=== PATIENT | male | born 1965 | race Caucasian/White ===

== ENCOUNTER 2018-06-19 22:25 | Outpatient (REF) | payer BC, SELFPAY ==
[2018-06-22 10:01] LABS: PSA, Screening 1.9 ng/ml (0-3.5)
== END 2018-06-19 22:45 ==
LOC: NCHCN 22:25
PROVIDERS: PCP Internal Medicine; Visit Provider Internal Medicine
DX: Z00.00 Encounter for general adult medical examination without abnormal findings (principal); Z12.5 Encounter for screening for malignant neoplasm of prostate; Z80.42 Family history of malignant neoplasm of prostate
CPT/HCPCS: 84153

== ENCOUNTER 2020-07-14 09:44 | Outpatient (REF) | payer OTHER, SELFPAY ==
[2020-07-14 21:53] LABS: ALT 35 U/L (16-63); AST 19 U/L (15-37); Albumin 4.1 g/dL (3.4-5.0); Alkaline Phosphatase 90 U/L (46-116); BUN 21 mg/dL (7-18); Bilirubin, Total 0.5 mg/dL (0.2-1.0); CREATININE 0.92 mg/dL (0.70-1.30); Calcium 9.5 mg/dL (8.5-10.1); Calculated LDL 150 mg/dL (<100); Chloride 105 mmol/L (98-107); Cholesterol 233 mg/dL (<200); Glucose 89 mg/dL (74-106); HDL Cholesterol 68 mg/dL (40-60); Potassium 4.4 mmol/L (3.5-5.1); Sodium 138 mmol/L (136-145); Total Protein 7.1 g/dL (6.4-8.2); Triglyceride 76 mg/dL (<150)
[2020-07-17 20:28] LABS: PSA, Screening 2.7 ng/mL (0-3.5)
== END 2020-07-14 10:04 ==
LOC: NCHCN 09:44
PROVIDERS: PCP Internal Medicine; Visit Provider Internal Medicine
DX: Z00.00 Encounter for general adult medical examination without abnormal findings (principal); Z80.42 Family history of malignant neoplasm of prostate; Z13.220 Encounter for screening for lipoid disorders
CPT/HCPCS: 80053; 80061; 84153

== ENCOUNTER 2021-07-13 08:45 | Outpatient (REF) | payer OTHER, SELFPAY ==
[2021-07-13 16:39] LABS: BUN 15 mg/dL (7-18); CREATININE 0.9 mg/dL (0.70-1.30); Calcium 9.3 mg/dL (8.5-10.1); Calculated LDL 174 mg/dL (<100); Chloride 105 mmol/L (98-107); Cholesterol 251 mg/dL (<200); Glucose 93 mg/dL (74-106); HDL Cholesterol 65 mg/dL (40-60); Potassium 4.4 mmol/L (3.5-5.1); Sodium 143 mmol/L (136-145); Triglyceride 62 mg/dL (<150)
[2021-07-16 09:53] LABS: PSA, Screening 2.6 ng/mL (0.0-3.5)
== END 2021-07-13 08:46 | disposition home or self-care (01) ==
LOC: NCHCN 08:45
PROVIDERS: PCP Internal Medicine; Visit Provider Internal Medicine
DX: Z00.00 Encounter for general adult medical examination without abnormal findings (principal); Z13.220 Encounter for screening for lipoid disorders; Z12.5 Encounter for screening for malignant neoplasm of prostate
CPT/HCPCS: 80048; 80061; 84153

== ENCOUNTER 2022-01-09 16:48 | Outpatient (REF) | payer OTHER, SELFPAY ==
[2022-01-09 15:31] LABS: Calculated LDL 123 mg/dL (<100); Cholesterol 186 mg/dL (<200); HDL Cholesterol 52 mg/dL (40-60); Triglyceride 58 mg/dL (<150)
== END 2022-01-09 16:49 | disposition home or self-care (01) ==
LOC: LBN 16:48
PROVIDERS: PCP Internal Medicine; Visit Provider Internal Medicine
DX: Z13.220 Encounter for screening for lipoid disorders (principal)
CPT/HCPCS: 80061

== ENCOUNTER 2023-01-17 11:24 | Outpatient (REF) | payer OTHER, SELFPAY ==
[2023-01-17 14:36] LABS: ALT 29 U/L (16-63); AST 22 U/L (15-37); Albumin 3.9 g/dL (3.4-5.0); Alkaline Phosphatase 81 U/L (46-116); Anion Gap 9.1 mmol/L (3-11); BUN 16 mg/dL (7-18); Bilirubin, Total 0.4 mg/dL (0.2-1.0); CO2 26.9 mmol/L (21.0-32.0); CREATININE 0.9 mg/dL (0.70-1.30); Calcium 9.4 mg/dL (8.5-10.1); Calculated LDL 129 mg/dL (<100); Chloride 105 mmol/L (98-107); Cholesterol 209 mg/dL (<200); Estimated GFR 100.24 (mL/min/1.73m2); Glucose 83 mg/dL (74-106); HDL Cholesterol 71 mg/dL (40-60); Potassium 4.2 mmol/L (3.5-5.1); Sodium 141 mmol/L (136-145); Total Protein 7.3 g/dL (6.4-8.2); Triglyceride 47 mg/dL (<150)
[2023-01-17 23:14] LABS: PSA, Screening 3.9 ng/mL (<=3.5)
== END 2023-01-17 11:25 | disposition home or self-care (01) ==
LOC: NCHCN 11:24
PROVIDERS: PCP Internal Medicine; Visit Provider Internal Medicine
DX: Z00.00 Encounter for general adult medical examination without abnormal findings (principal); E78.5 Hyperlipidemia, unspecified; I10 Essential (primary) hypertension; Z12.5 Encounter for screening for malignant neoplasm of prostate
CPT/HCPCS: 80053; 80061; 84153

== ENCOUNTER 2023-04-16 08:53 | Outpatient (REF) | payer OTHER, SELFPAY ==
[2023-04-16 16:00] LABS: Vitamin D 25 Total 25.9 ng/mL (30-100)
[2023-04-16 23:12] LABS: PSA, Screening 3.7 ng/mL (<=3.5)
== END 2023-04-16 08:54 | disposition home or self-care (01) ==
LOC: NCHCN 08:53
PROVIDERS: PCP Internal Medicine; Visit Provider Internal Medicine
DX: Z12.5 Encounter for screening for malignant neoplasm of prostate (principal); F32.A Depression, unspecified
CPT/HCPCS: 82306; 84153

== ENCOUNTER 2023-09-15 06:20 | Day surgery (SDC) | payer OTHER, SELFPAY ==
--- NOTE | 2023-09-14 18:19 | W.PM.DSUDISC ---
Date of service: 09/15/23 Time of Service: 08:09 Discharge Plan Disposition Patient Disposition: Home Condition: Good Discharge Details Reason For Visit: screening colonoscopy Attending Provider: Ghulam Nicolas Primary Care Provider: Berta Garcia Home Meds and New Rx's Prescriptions: Continued omeprazole 20 mg capsule,delayed release(DR/EC) 20 mg PO .3 times a week albuterol sulfate [Proventil HFA] 90 mcg/actuation HFA aerosol inhaler 2 puff inhalation Q6H PRN fluticasone propion-salmeterol [Advair Diskus] 500-50 mcg/dose blister with device 1 inh inhalation BID Discontinued bisacodyl [Dulcolax (bisacodyl)] 5 mg tablet,delayed release (DR/EC) 5 mg PO ONCE Qty: 4 0RF Rx Instructions: Take per colonoscopy instructions provided by ordering providers office polyethylene glycol 3350 17 gram/dose powder 17 g PO ONCE Qty: 238 0RF Rx Instructions: Take per colonoscopy instructions provided by ordering providers office Discharge Instructions Instructions: Diverticulosis (DC), Colorectal Polyps (GEN), Diverticulosis Diet (GEN) Additional Instructions: Gino, we were able to complete your colonoscopy today without any difficulty. Your prep was excellent. I did see 2 small areas that may be polyps. I removed these both completely. We will take a week or 2 for me to get the results of the pathology report, but once I have that I will be in touch. Incidentally, you also have just a small amount of diverticulosis. I have attached a little bit of information here regarding diverticular disease and is typical management approaches. 1. If tolerated, consume a soft, low fiber diet for 1-2 days. 2[address] Do not drive, drink alcohol, operate machinery, make critical decisions, or do activities that require coordination or balance for 24 hours. 3. Because air was put into your colon during the procedure, expelling air from your rectum (passing gas or farting) is normal. 4. You may not have a bowel movement for 1-3 days because of the colonoscopy prep. This is normal. 5. Go directly to the emergency room if you notice any of the following: Develop chills (warm to touch), or if you have a thermometer and your temperature is above 101 Difficulty breathing or difficultly swallowing Persistent vomiting Severe abdominal pain, other than gas cramps Severe chest pain Black, tarry stools Any bleeding ? exceeding one tablespoon 6. Call your physician if the site where your intravenous was started becomes red, swollen, painful, and warm to touch. 7. Your physician has reviewed your pre-procedure medications. Please continue to take those medications as previously ordered. You will be given specific information/education regarding any changes to your medications before leaving. Activity:: Activity as Tolerated Diet:: As Tolerated Discharge Orders Discharge Orders: Discharge Order (Routine); Ordered 09/14/23 Ordered By: Ghulam Nicolas DS: Diagnosis Discharge Diagnosis (1) Screen for colon cancer: Status: Acute Asessment and Plan: Follow-up on polypectomy results
--- NOTE | 2023-09-14 18:21 | W.COLOREPORT ---
Date of service: 09/15/23 Time of Service: 08:12 Colonoscopy Report Date of procedure: 09/15/23 Pre-op diagnosis general: screening colonoscopy Post-op diagnosis procedure note: other (Diverticulosis, colon polyps) Procedure: Colonoscopy Surgeon: Ghulam Nicolas Anesthesia Type: General:No Airway Estimated blood loss (mL): 5 Pathology: other (0.25 cm polyp at 25 cm x 2) Complications: None Disposition: same day Indications: Gino is a 58 year old man with a history of adenomatous plyps who needs his next screening colonoscopy Prep: Miralax/Dulcolax Procedure Start Time: 07:34 Procedure End Time: 07:57 Retraction Time: 16 Findings: 0.25 cm polyp at 25 cm x 2 Procedure Description: After the induction of monitored anesthetic care, and with the patient in left lateral decubitus position, I began by performing an external anorectal exam.? Perineum and skin were normal, as was the anal verge.? There are some fibrosed perianal skin tags.? Next, I performed a digital rectal exam.? I did not appreciate any abnormal findings.? Next, I advanced a colonoscope into the rectal vault.? I performed retroflexion.? This was normal.? Using insufflation, I then advanced the colonoscope beyond the rectal folds and into the sigmoid colon before advancing towards the cecum.? There were just a few scattered sigmoid diverticula.? The scope was noted to be in the cecum by identification of the ileocecal valve and appendiceal orifice.? I then began withdrawing the colonoscope using repeated irrigation as necessary for full evaluation of the colonic mucosa. Around 20 cm from the anus were 2 polyps. One may not be a true polyp. Narrowband imaging was used to assist with analysis. Regardless, both were removed with cold forceps. Both of these polyps were flat. There was minimal bleeding from the polypectomy sites. Once the scope was withdrawn to the level of the rectum, great care was taken to examine portions of the rectal folds.? Finally, the scope was withdrawn and the patient was brought to the same-day surgery recovery unit as the anesthetic wore off. ?The findings and instructions were shared with the patient prior to discharge. [place] Bowel Prep [place] Bowel Prep Right Colon: 3 Left Colon: 3 Transverse Colon: 3 Total Score: 9
[2023-09-15 06:30] VITALS: BP 144/94; PULSE 90; RESP 16; TEMP 37.2; O2SAT 99
[2023-09-15] MEDS: Lactated Ringers 1,000 ML 80 ML IV (06:47)
--- NOTE | 2023-09-15 07:13 | W.ANESPRE ---
General Info Date of Service Date Performed: 09/15/23 Height: 5 ft 10 in Weight: 87.3 kg Body Mass Index (BMI): 27.6 Surgical Procedure: Operation Date: 09/15/23 07:35 Proposed Procedure Side Surgeon p Que Nicolas MD Meds Allergies and Home Medications Allergies Allergy/AdvReac Type Severity Reaction Status Date / Time No Known Allergies Allergy Verified 09/15/23 06:28 Home Medication Medication Instructions Recorded albuterol sulfate 90 mcg/actuation 2 puff inhalation Q6H PRN 08/07/23 aerosol inhaler (Proventil HFA) fluticasone 500 mcg-salmeterol 50 1 inh inhalation BID 08/07/23 mcg/dose blistr powdr for inhalation (Advair Diskus) omeprazole 20 mg capsule,delayed 20 mg PO .3 times a week 08/07/23 release Current Visit Medications: Current Medications Generic Name Dose Route Start Last Admin Trade Name Freq PRN Reason Stop Dose Admin Hyoscyamine Sulfate 0.125 mg 09/14/23 18:22 Hyoscyamine 0.125 Mg Sl/Oral/Chew SL 10/14/23 18:21 DIRECTED PRN Ringer's Solution 1,000 mls @ 80 mls/hr 09/15/23 06:00 09/15/23 06:47 IV 09/15/23 23:59 80 mls/hr INFUSION PRIYANK Administration IV Miscellaneous Supplies 1 each 09/15/23 06:00 Iv Access IV 09/15/23 23:59 DIRECTED PRIYANK Ondansetron HCl 4 mg 09/14/23 18:22 Ondansetron 4 Mg/2 Ml Vial IVP 10/14/23 18:21 Q4H PRN PRN Nausea / Vomiting Sodium Chloride 0 ml 09/15/23 06:00 Normal Saline Flush 10 Ml Syr IV 09/15/23 23:59 PRN PRN Sodium Chloride 0 ml 09/15/23 06:00 Normal Saline 10 Ml Vial IJ 09/15/23 23:59 DIRECTED PRN Sterile Water 0 ml 09/15/23 06:00 Water,Injection,Sterile 10 Ml Vial IJ 09/15/23 23:59 DIRECTED PRN PFSH Active Problems Active Problems: Problem Status Onset Code Screen for colon cancer Z12.11 Depression with anxiety F41.8 Medical History Medical History Asthma Adenomatous colon polyp 2017 Surgical History Surgical History Hx of colonoscopy Tobacco Smoking/Tobacco Use Status: Former Tobacco Use Alcohol Alcohol Intake: current Alcohol intake frequency: a few times a week Substance Use Substance use: Never Substance use type: does not use Vital Signs and Lab Results Vital Signs Most Recent Vital Signs in EMR: Most Recent Vital Signs Temp Pulse Resp BP Pulse Ox 37.2 C 90 16 144/94 H 99 09/15/23 06:30 09/15/23 06:30 09/15/23 06:30 09/15/23 06:30 09/15/23 06:30 Lab Results Blood Type / Crossmatch: No Data to Display Complete Blood Count: No Data to Display Complete Metabolic Panel: No Data to Display Liver Function Panel: No Data to Display Coagulation Panel: No Data to Display Cardiac Panel: No Data to Display Arterial Blood Gas: No Data to Display Venous Blood Gas: No Data to Display Pancreas Panel: No Data to Display Thyroid Panel: No Data to Display Infectious Disease: No Data to Display Blood Cultures: No Data to Display Toxicology Panel: No Data to Display Anesthesia Assessment and Plan Anesthesia History Personal History: No History of Anesthesia Complications Family History: No Family History of Anesthesia Complications Exercise Tolerance Exercise Tolerance: Metabolic Equivalents>4 Pertinent Negatives Pertinent Negatives: No Symptoms of GERD and No Major Cardiovascular Symptoms or Complaints Cardiac & Pulmonary Exam Cardiac Exam: Normal S1/S2 Heart Sounds Pulmonary Exam: Clear Bilateral Breath Sounds Implantable Cardiac Device Does patient have a Pacemaker or an ICD?: No Airway Exam Known Difficult Airway: No Mallampati Class: 2 Mouth Opening: Normal (> 3cm) Thyromental Distance: Greater than 3 cm Neck Range of Motion: Full ROM Neck Circumference: Normal Teeth Condition: Normal Dentition ASA Classification ASA Score: ASA 2 Emergency Case?: No NPO Status NPO Status: NPO Clears >2 hours, Solids >8 hours Anesthesia Plan Resuscitation Status: Full Code Anesthesia Technique: General Anesthesia Airway Planned: Natural Airway Monitors Used: Standard Monitors
[2023-09-15 07:15] VITALS: BMI 27.6
--- NOTE | 2023-09-15 07:52 | BOWEL_PTH ---
PATIENT: Gino George LOC: [facility] U#:[id number] AGE/SX: 58/M ROOM: RE09/15/[address]: Ghulam Nicolas MD : 1965 BED: DIS: 09/15/2023 SPEC #: [id number] RECD: 09/15/23 11:58 STATUS: PAWEL RE #: [id number] CASANDRA: 09/15/23 07:[address]: Ghulam Nicolas DEPT: Surgical Specimen RECD BY: Laney Mccollum ENTERED: 09/15/23 11:59 SP TYPE: Bowel OTHR DR: Berta Garcia Tissues: 1 - BIOPSY BOWEL Procedures: GROSS AND MICRO LEVEL 4 Comments: [id number]
[2023-09-15 08:02] VITALS: BP 117/76; PULSE 67; RESP 18; TEMP 36.6; O2SAT 96
--- NOTE | 2023-09-15 08:21 | W.ANESPOSTOP ---
Postoperative Evaluation Date, Time and Location Date Performed: 09/15/23 Time Performed: 08:04 Patient Location: Day Surgery Unit Vital Signs Most Recent Imported Vital Signs: Most Recent Vital Signs Temp Pulse Resp BP Pulse Ox 36.6 C 67 18 117/76 96 09/15/23 08:02 09/15/23 08:02 09/15/23 08:02 09/15/23 08:02 09/15/23 08:02 Pain Score Most Recent Pain Score: Most Recent Pain Score Pain Level 0 09/15/23 08:02 Assessment Mental Status: Awake (Alert & Oriented to Patient Baseline) Airway and Respiratory Function: Patent airway with normal (patient baseline) respiratory exam Cardiovascular Function: Hemodynamically Stable Hydration Status: Adequately Hydrated Nausea & Vomiting: No Nausea or Vomiting Pain: Pt. Denies Any Pain Peripheral Nerve Block: Patient did not receive a nerve block
[2023-09-15 08:25] VITALS: BP 106/73; PULSE 75; RESP 16; TEMP 36.6; O2SAT 98
== END 2023-09-15 08:47 | disposition home or self-care (01) ==
LOC: SUR 06:20
PROVIDERS: PCP Internal Medicine; Visit Provider Surgery
PROC: 0DJD8ZZ Inspection of Lower Intestinal Tract, Via Natural or Artificial Opening Endoscopic (ICD-10-PCS; CPT 45378; principal; 2023-09-15 07:30)
DX: Z12.11 Encounter for screening for malignant neoplasm of colon (principal); K63.5 Polyp of colon; K57.30 Diverticulosis of large intestine without perforation or abscess without bleeding; Z86.010 Personal history of colon polyps
CPT/HCPCS: 45380; 88305; J2704

== ENCOUNTER 2024-01-19 12:20 | Outpatient (REF) | payer OTHER, SELFPAY ==
[2024-01-19 16:36] LABS: Calculated LDL 117 mg/dL (<100); Cholesterol 199 mg/dL (<200); HDL Cholesterol 77 mg/dL (40-60); Triglyceride 28 mg/dL (<150)
== END 2024-01-19 12:21 | disposition home or self-care (01) ==
LOC: NCHCN 12:20
PROVIDERS: PCP Internal Medicine; Visit Provider Internal Medicine
DX: E78.5 Hyperlipidemia, unspecified (principal); Z12.5 Encounter for screening for malignant neoplasm of prostate
CPT/HCPCS: 80061; 84153

== ENCOUNTER 2024-05-20 14:38 | Outpatient (REF) | payer OTHER, SELFPAY ==
--- OUTSIDE RECORDS SUMMARY | 2024-05-20 14:41 | XMS_ITS | Clinical Summary ---
[place] [address] Care Team Providers Care Fisher Swordfish Name Role Phone Berta Garcia MD Primary Care Provider Encounters Date Type Department Care Team Description 05/18/2024 Unscheduled [place] [id number] Claudia Green RN Elevated PSA 05/18/2024 [place] [phone] Claudia Green RN 05/18/2024 [place] [address] Juany Paniagua APRN Elevated PSA from Last 3 Months Social History Tobacco Use Types Packs/Day Years Used Date Smoking Tobacco: Never Assessed Sex and Gender Information Value Date Recorded Sex Assigned at Not on file Gender Identity Not on file Sexual Orientation Not on file Plan of Treatment Upcoming Encounters Date Type Department Care Team (Late st Contact Info) Description 05/24/2024 8:20 AM EDT [place] [address] Juany Paniagua APRN [facility] [place] [address] Health Maintenance Due Date Last Done Comments CT Colonography 1966 Colonoscopy 1966 Colorectal Cancer Screening 1966 FIT DNA 1966 FIT 1966 Sigmoidoscopy (10 year) with FIT yearly 1966 Sigmoidoscopy 1966 HIV screen 1984 Hepatitis C Screening 1984 Lipid Screening 1984 Hepatitis B vaccine (0-59 yrs) (1) 1985 Tdap adult 1985 Tetanus vaccine 1985 Zoster vaccine (1 of 2) 2016 Advance Directive 2021 Covid-19 Vaccine ( - season) 2024 Influenza (Flu) vaccine (1 o f 1 - Influenza standard series) 05/09/2024 Care Teams Fisher Swordfish Relationship Specialty Start Date End Date Berta Garcia MD [address] [place] [address] PCP - General General Internal Medicine 01/28/24
--- OUTSIDE RECORDS SUMMARY | 2024-05-20 14:41 | XMS_ITS | Encounter Summary ---
[place] [address] Care Team Providers Care Staff Certified Nurse Midwife Name Role Phone Berta Garcia MD Primary Care Provider Encounter Details Date Type Department Care Team (Late st Contact Info) Description 05/18/2024 Orders [place] [address] Juany Paniagua [facility] [place] [address] Elevated PSA Social History Tobacco Use Types Packs/Day Years Used Date Smoking Tobacco: Never Assessed Sex and Gender Information Value Date Recorded Sex Assigned at Not on file Gender Identity Not on file Sexual Orientation Not on file documented as of this encounter Plan of Treatment Upcoming Encounters Date Type Department Care Team (Late st Contact Info) Description 05/24/2024 8:20 AM EDT Office [place] [address] Juany Paniagua [facility] [place] [address] Scheduled Orders Name Type Priority Associated Diagnoses Orde r Schedule PSA (Ultrasensitive), total and free Lab STAT Elevated PSA Expected: 05/18/2024, Expires: 08/17/2024 documented as of this encounter Visit Diagnoses Diagnosis Elevated PSA Elevated prostate specific antigen (PSA) documented in this encounter Care Teams Staff Certified Nurse Midwife Relationship Specialty Start Date End Date Berta Garcia MD [address] [place] [id number] PCP - General General Internal Medicine 01/28/24 documented as of this encounter
--- OUTSIDE RECORDS SUMMARY | 2024-05-20 14:41 | XMS_ITS | Encounter Summary ---
Author Organization [facility] [place] [address] Care Team Providers Care Tape Maker Name Role Phone Berta Garcia MD Primary Care Provider [phone] Encounter Details Date Type Department Care Team (Late st Contact Info) Description 05/18/2024 [place] [address] Claudia Green, RN Social History Tobacco Use Types Packs/Day Years Used Date Smoking Tobacco: Never Assessed Sex and Gender Information Value Date Recorded Sex Assigned at Not on file Gender Identity Not on file Sexual Orientation Not on file documented as of this encounter Progress Notes * Claudia Green, RN - 05/18/2024 4:23 PM EDT Error documented in this encounter Plan of Treatment Upcoming Encounters Date Type Department Care Team (Late st Contact Info) Description 05/24/2024 8:20 AM EDT [place] [address] Juany Paniagua APRN [facility] [place] [address] documented as of this encounter Visit Diagnoses Not on filedocumented in this encounter Care Teams Tape Maker Relationship Specialty Start Date End Date Berta Garcia MD [address] [address] PCP - General General Internal Medicine 01/28/24 documented as of this encounter
--- OUTSIDE RECORDS SUMMARY | 2024-05-20 14:41 | XMS_ITS | Encounter Summary ---
Author Organization [facility] [place] [address] Care Team Providers Care Cripple Worker Name Role Phone Berta Garcia MD Primary Care Provider [phone] Encounter Details Date Type Department Care Team (Late st Contact Info) Description 05/18/2024 Unscheduled [place] [address] Claudia Green RN Elevated PSA Social History Tobacco Use Types Packs/Day Years Used Date Smoking Tobacco: Never Assessed Sex and Gender Information Value Date Recorded Sex Assigned at Not on file Gender Identity Not on file Sexual Orientation Not on file documented as of this encounter Progress Notes * Claudia Green, GRZEGORZ - 05/18/2024 4:25 PM EDT Psa sent to [facility] documented in this encounter Plan of Treatment Upcoming Encounters Date Type Department Care Team (Late st Contact Info) Description 05/24/2024 8:20 AM EDT [place] [address] Juany Paniagua APRN [facility] [place] [address] documented as of this encounter Visit Diagnoses Diagnosis Elevated PSA Elevated prostate specific antigen (PSA) documented in this encounter Care Teams Cripple Worker Relationship Specialty Start Date End Date Berta Garcia MD [address] [place] [address] PCP - General General Internal Medicine 01/28/24 documented as of this encounter
--- OUTSIDE RECORDS SUMMARY | 2024-05-20 14:42 | XMS_ITS | Referral Summary ---
Author Organization [facility] Address [address] [place] [address] Care Team Providers Care Duralumin Mechanic Name Role Phone Berta Garcia Primary Care Provider [phone] Encounters Date Type Department Care Team Description 04/29/2024 8:10 EDT Office Visit [facility] Dermatology 3rd Floor [address] [address] Desiree Galvez, ATUL Multiple atypical nevi (Primary Dx); Nevus spilus of right thigh from Last 3 Months Allergies Active Allergy Reactions Criticality Noted Date Comments Cat Dander 08/28/2022 Medications Medication Sig Dispensed Refills Start Date End Date Status FLUTICASONE/SALMETEROL (ADVAIR DISKUS INHL) Inhale as directed. 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 Social History Tobacco Use Types Packs/Day Years Used Date Smoking Tobacco: Former Cigarettes Smokeless Tobacco: Never Tobacco Cessation:Counseling Given: Not Answered Alcohol Use Standard Drinks/Week Comments Not Asked 0 (1 standard drink = 0.6 oz pur e alcohol) Interpersonal Safety Answer Date Record ed Physically Hurt Never 04/09/2020 Verbally Threaten Not on file 04/09/2020 Sex and Gender Information Value Date Recorded Sex Assigned at Not on file Gender Identity Not on file Sexual Orientation Not on file Plan of Treatment Not on file Care Teams Duralumin Mechanic Relationship Specialty Start Date End Date Berta Garcia [address] [place] [address] PCP - General Internal Medicine - Primary Care 12/24/21
--- OUTSIDE RECORDS SUMMARY | 2024-05-20 14:42 | XMS_ITS | Encounter Summary ---
Author Organization [facility] Address [address] [place] [address] Care Team Providers Care Shipfitter Apprentice Name Role Phone Berta Garcia Primary Care Provider [phone] Encounter Details Date Type Department Care Team (Late st Contact Info) Description 04/16/2023 Lab Requisition [facility] Pathology & Laboratory Medicine - [address] [address] Outr Resulting Lab, Provider Social History Tobacco Use Types Packs/Day Years Used Date Smoking Tobacco: Former Cigarettes Smokeless Tobacco: Never Alcohol Use Standard Drinks/Week Comments Not Asked [...] as of this encounter Plan of Treatment Not on file documented as of this encounter Procedures Procedure Name Priority Date/Time Associated Diagnosis Comments PSA TOTAL, DIAGNOSTIC Routine 04/16/2023 7:45 EDT documented in this encounter Results * (ABNORMAL) PSA TOTAL, DIAGNOSTIC (04/16/2023 7:45 EDT) PSA 3.7(H) <=3.5 ng/mL 04/16/2023 23:06 EDT [facility] Blood VENOUS BLOOD / Unknown 04/16/2023 7:45 EDT 04/16/2023 21:36 EDT Narrative [facility] - 04/16/2023 23:06 EDT NOTE: Serum PSA concentration should not be interpreted as absolute evidence for the presence or absence of malignant disease. Assayed on Siemens ADVIA Centaur XPT using chemiluminescent technology.??Values obtained by using different assay methods cannot be used interchangeably. Provider Outr Resulting Lab CHEMISTRY & BLOOD GAS ORDERABLES [facility] [address] [place] [address] documented in this encounter Visit Diagnoses Not on filedocumented in this encounter Care Teams Shipfitter Apprentice Relationship Specialty Start Date End Date Berta Garcia [address] [place] [address] PCP - General Internal Medicine - Primary Care 12/24/21 documented as of this encounter
--- OUTSIDE RECORDS SUMMARY | 2024-05-20 14:42 | XMS_ITS | Encounter Summary ---
Author Organization [facility] Address [address] [place] [address] Care Team Providers Care Ginseng Farmer Name Role Phone Dano Euceda MD Primary Care Provider Unav ailable Reason for Visit * Reason Comments Skin Exam FBSE; h/o atypical n ricki Encounter Details Date Type Department Care Team (Late st Contact Info) Description 11/06/2016 10:45 EST Office Visit [facility] Dermatology 3rd Floor [address] [id number] Desiree Galvez, ATUL [address] [place] [address], [address] [place] [phone] Multiple atypical nevi (Primary Dx); Nevus spilus of right thigh; Epidermoid cyst; Actinic skin damage Social History Tobacco Use Types Packs/Day Years Used Date Smoking Tobacco: Former Cigarettes Smokeless Tobacco: Never Alcohol Use Standard Drinks/Week Comments Not Asked 0 (1 standard drink = 0.6 oz pur e alcohol) Sex and Gender Information Value Date Recorded Sex Assigned at Not on file Gender Identity Not on file Sexual Orientation Not on file documented as of this encounter Progress Notes * ArleneRandi briones - 11/06/2016 1045 EST Review of Systems Constitutional: Negative for fatigue, fever and unexpected weight change. HENT: Negative for mouth sores. Eyes: Negative for pain. Respiratory: Negative for cough and shortness of breath. Cardiovascular: Negative for chest pain and palpitations. Gastrointestinal: Negative for abdominal pain, blood in stool, constipation, diarrhea, nausea and vomiting. Genitourinary: Negative for dysuria, frequency and hematuria. Musculoskeletal: Negative for myalgias, joint swelling, arthralgias and muscle stiffness in the morning. Skin: Negative for rash. Neurological: Negative for numbness and headaches. Endo/Heme/Allergies: Does not bruise/bleed easily. Psychiatric/Behavioral: Negative for sleep disturbance. The patient is not nervous/anxious. Randi Arlene 11/06/2016 10:39 Desiree Galvez PA-C 11:07 11/06/2016 * Desiree Galvez PA - 11/06/2016 1045 EST DERMATOLOGY OUT PATIENT PROGRESS NOTE FOLLOW-UP - ATYPICAL NEVI PROBLEM: 1. Atypical nevi 2. Nevus spilus, right thigh SUBJECTIVE: Gino is a 51 y.o. male who presents today for routine skin check. He has been betterabout sun protection overall. LAST VISIT: 04/11/15 PREVIOUS BIOPSIES: Yes - all benign FAMILY HISTORY OF MELANOMA: No CONCERNS TODAY: 1. Check moles - none have changed as far as he knows 2. Check small bump on the upper back that he has always thought was a mole I reviewed the past medical history, social history, current medications and allergies. Current Outpatient Prescriptions on File Prior to Visit Medication Sig Dispense Refill ??? FLUOXETINE HCL (FLUOXETINE ORAL) Take by mouth. ??? FLUTICASONE/SALMETEROL (ADVAIR DISKUS INHL) Inhale as directed. No current facility-administered medications on file prior to visit. OBJECTIVE: No apparent distress. Fit, hHealthy apperaing male sitting comfortably. Appropriate affect and demeanor. SKIN EXAM: Apple Skin Type III - full body examination including the hair, scalp, face, eyelids, lips, neck, chest, back, abdomen, genitalia, all four extremities, hands, feet, digits and nails. There is moderate diffuse actinic changes over the sun exposed areas of the face, chest, upper back, shoulders forearms, dorsal hands and legs. OTHER LESIONS NOTED: 1. Upper back, mid - 6 mm rubbery cyst with visible central punctum 2. He has many phenotypically different macules and papules over the torso and extremities, all of which have similar lesions. When viewed globally, there are none that look different than others that are similar. A few macules have darker pigment in the centers which is uniform and reticulate whenviewed with magnification. There are many doughy mammillated papules and small plaques scattered over the torso and neck 3. Right anterior thigh - 3.0 x 2.5 cm stephens patch within which are multiple 1-2 mm dark brown monomorphic macules ASSESSMENT: 1. Multiple atypical nevi 2. Nevus spilus of right thigh 3. Epidermoid cyst 4. Actinic skin damage PLAN: 1. Biopsy today: No 2. Reviewed signs and symptoms of melanoma and non-melanoma skin cancers to be aware of. 3. Self-surveillance - reviewed ugly duckling sign. 4. The importance of sunscreen use (SPF >30), sun avoidance and self-examination was discussed. Reapplication of sunscreen every 2-3 hours as recommended. 5. Reassured about the cyst. Since this is not at all bothersome, there is no need for removal. 6. Follow up: every couple of years or sooner with any questions or concerns. Please note: Parts of this documentation were created with the use of voice recognition software and may contain instrumentation fitter errors JAZ Fontenot 10:49 11/06/2016 documented in this encounter Plan of Treatment Not on file documented as of this encounter Visit Diagnoses Diagnosis Multiple atypical nevi- Primary Nevus spilus of right thigh Epidermoid cyst Sebaceous cyst Actinic skin damage Other dermatitis due to solar radiation documented in this encounter Care Teams Ginseng Farmer Relationship Specialty Start Date End Date Dano Euceda MD PCP - General 04/14/12 12/23/21 documented as of this encounter
--- OUTSIDE RECORDS SUMMARY | 2024-05-20 14:42 | XMS_ITS | Encounter Summary ---
[place] [address] Care Team Providers Care Baseball Inspector And Repairer Name Role Phone Berta Garcia MD Primary Care Provider Reason for Referral * Consultation (Routine) - Authorized Specialty Diagnoses / Procedures Referred By Mario gonzalez Referred To Contact Urology Diagnoses Elevated prostate specific antigen (PSA) Family history of prostate cancer in father Berta Garcia MD [address] [place] [address] [facility] [place] [address] Referral ID Status Reason Start Date Expiration Date Visits Requested Visits Authorized [id number] Authorized Consult, Test & Treat PCP Updated and/or Approved 01/28/2024 07/30/2024 6 6 Encounter Details Date Type Department Care Team (Latest Contact Info) Description 01/28/2024 Transcribe Orders eDH Incoming Referrals [phone] Berta Garcia MD [address] [place] [phone] Elevated prostate specific antigen (PSA); Family history of prostate cancer in father Social History Tobacco Use Types Packs/Day Years [...] 8:20 AM EDT [place] [address] Juany Paniagua APRN [facility] [place] [address] Scheduled Referrals Name Type Priority Associated Diagnoses Orde r Schedule Referral to Urology Outpatient Referral Routine Elevated prostate specific antigen (PSA) Family history of prostate cancer in father Ordered: 01/28/2024 documented as of this encounter Visit Diagnoses Diagnosis Elevated prostate specific antigen (PSA) Family history of prostate cancer in father documented in this encounter Care Teams Baseball Inspector And Repairer Relationship Specialty Start Date End Date Berta Garcia MD [address] [place] [id number] PCP - General General Internal Medicine 01/28/24 documented as of this encounter
--- OUTSIDE RECORDS SUMMARY | 2024-05-20 14:42 | XMS_ITS | Encounter Summary ---
Author Organization [facility] Address [address] [place] [address] Care Team Providers Care Community Development Officer Name Role Phone Berta Gacria Primary Care Provider [phone] Reason for Visit * Reason Comments Follow-up Skin lesions Encounter Details Date Type Department Care Team (Late st Contact Info) Description 04/29/2024 8:10 EDT Office Visit [facility] Dermatology 3rd Floor [address] [address] Desiree Galvez PA-C [address] [place] [address], [address] [place] [phone] Multiple atypical nevi (Primary Dx); Nevus spilus of right thigh Social History Tobacco Use Types Packs/Day Years [...] as of this encounter Progress Notes * Desiree Galvez PA-C - 04/29/2024 0810 EDT DERMATOLOGY OUT PATIENT PROGRESS NOTE PROBLEM: FOLLOW - UP SKIN CHECK SUBJECTIVE: Gino is a 58 y.o. male who presents today for a complete skin check. Last visit: 2 years ago. History of skin cancer: No Family history of skin cancer: No History of significant sun exposure/sunburns: Yes Dermatologic history: 1.Atypical nevi 2, Nevus spilus Concerns today: 1.Check moles - no changes as far as he knows 2.Not great about sunscreens I reviewed the past medical history, social history, current medications and allergies. Current Outpatient Medications on File Prior to Visit Medication Sig Dispense Refill FLUTICASONE/SALMETEROL (ADVAIR DISKUS INHL) Inhale as directed. No current facility-administered medications on file prior to visit. Allergies Allergen Reactions Cat Dander OBJECTIVE: No apparent distress. Appropriate affect and demenaor. SKIN EXAM: Apple skin type III . The following areas were examined: head (scalp, face, ears, nose, eyelids), neck, torso, extremities, pubis, buttocks, hands and feet . The skin exam was normalexcept for the followin. Scattered over the torso and extremities are multiple phenotypically different macules and papules. There are no outliers that have no similar lesions. When viewed globally, these are mostly medium to dark brown, many doughy papules and many medium to dark brown macules. There are a few that have denser, darker brown pigment in the centers and these to look clinically similar when viewed globally. 2. Right anterior thigh 3.0 x 2.5 cm stephens patch within which there are multiple 1 mm dark brown macules that all look clinically similar ASSESSMENT: 1. Multiple atypical nevi 2. Nevus spilus of right thigh PLAN: 1. The importance of sunscreen use (SPF >30), sun avoidance and self-examination was discussed. Sunscreen should be reapplied every 2-3 hours. 2. The ABCDE's of melanoma were reviewed. Reviewed the ugly duckling sign and the importance of monthly self-surveilance. Also reviewed signs and symptoms of non-melanoma skin cancers. Advised to call office with any questions or concerns. 3. As his nevi have been stable, he does not need to come for routine skin cancer screening. If he has any questions or issues, he can check in with his PCP and if she feels that he needs to see our office, she will send the appropriate referral. He is comfortable with this plan. 4. Follow-up: see above. Please note: Parts of this documentation were created with the use of voice recognition software and may contain granulating machine operator errors Desiree Galvez PA-C 7:52 04/29/2024 documented in this encounter Plan of Treatment Not on file documented as of this encounter Visit Diagnoses Diagnosis Multiple atypical nevi- Primary Nevus spilus of right thigh documented in this encounter Care Teams Community Development Officer Relationship Specialty Start Date End Date Berta Garcia [address] [place] [address] PCP - General Internal Medicine - Primary Care 12/24/21 documented as of this encounter
--- OUTSIDE RECORDS SUMMARY | 2024-05-20 14:42 | XMS_ITS | Encounter Summary ---
Author Organization [facility] Address [address] [place] [address] Care Team Providers Care Silo Erector Name Role Phone Dano Euceda MD Primary Care Provider Unav ailable Reason for Visit * Reason Comments Follow-up Skin check no H/O sk in cancer Encounter Details Date Type Department Care Team (Late st Contact Info) Description 04/21/2013 13:15 EDT Office Visit [facility] Dermatology 3rd Floor [address] [address] Desiree Galvez, PA-C [address] [place] [address], [address] [place] [phone] Atypical nevi (Primary Dx); Spitz nevus of thigh; Epidermoid cyst; Other chronic dermatitis due to solar radiation Social History Tobacco Use Types Packs/Day Years Used Date Smoking Tobacco: Former Cigarettes Alcohol Use Standard Drinks/Week Comments Not Asked 0 (1 standard drink = 0.6 oz pur e alcohol) Sex and Gender Information Value Date Recorded Sex Assigned at Not on file Gender Identity Not on file Sexual Orientation Not on file documented as of this encounter Progress Notes * Desiree Galvez PA - 04/21/2013 1320 EDT DERMATOLOGY OUT PATIENT PROGRESS NOTE FOLLOW-UP - ATYPICAL NEVI PROBLEM: Atypical nevi SUBJECTIVE: Gino is a 47 y.o. male who presents today for routine skin check. He has been betterabout sun protection overall. LAST SKIN EXAM: 04/2012 PREVIOUS BIOPSIES: yes - benign FAMILY HISTORY OF MELANOMA: No CONCERNS TODAY: 1. Full skin check 2. Has not noticed any changes - he cannot adequately check his back I reviewed the past medical history, social history, current medications and allergies. Current Outpatient Prescriptions Medication Sig Dispense Refill ??? FLUTICASONE/SALMETEROL (ADVAIR DISKUS INHL) Inhale as directed. ??? FLUOXETINE HCL (FLUOXETINE ORAL) Take by mouth. OBJECTIVE: No apparent distress. Healthy apperaing male sitting comfortably. Appropriate affect anddemeanor. SKIN EXAM: Apple Skin Type III - full body examination including the hair, scalp, face, eyelids, lips, neck, chest, back abdomen, genitalia, all four extremities, hands, feet, digits and nails.. There is moderate diffuse actinic changes over the sun exposed areas of the face, upper back, shoulders, forearms, dorsal hands and legs. There are scattered medium to dark brown macules and papules in the following locations: Torso, arms and legs OTHER LESIONS NOTED: 1. he has many phenotypically different macules and papules, all of which have matching lesions andwhen viewed globally. A few have darker pigment in the centers which is uniform when viewed with magnification. 2. right anterior thigh - 3 x 2 cm stephens patch with in which are multiple 1-2 mm darker macules 3. Mid upper back - 8mm cyst with central punctum ASSESSMENT: 1. Atypical nevi 2. Spitz nevus of thigh 3. Epidermoid cyst 4. Other chronic dermatitis due to solar radiation PLAN: 1. Biopsy today: No 2. Reviewed signs and symptoms of melanoma and non-melanoma skin cancers to be aware of. 3. Self-surveillance - reviewed ugly duckling sign. 4. The importance of sunscreen use (SPF >30), sun avoidance and self-examination was discussed. 5. Follow up: 1 year or sooner with any questions or concerns. JAZ Fontenot 13:20 04/21/2013 * Kerry Mohan - 04/21/2013 9127 EDT Review of Systems Constitutional: Negative for fever, fatigue and unexpected weight change. HENT: Negative for mouth sores. Eyes: Negative for pain. Respiratory: Negative for cough and shortness of breath. Cardiovascular: Negative for chest pain and palpitations. Gastrointestinal: Negative for nausea, vomiting, abdominal pain, diarrhea, constipation and blood in stool. Genitourinary: Negative for dysuria, frequency and hematuria. Musculoskeletal: Negative for myalgias, joint swelling, arthralgias and muscle stiffness in the morning. Skin: Negative for rash. Neurological: Negative for numbness and headaches. Endo/Heme/Allergies: Does not bruise/bleed easily. Psychiatric/Behavioral: Negative for sleep disturbance. The patient is not nervous/anxious. Kerry Mohan, 04/21/2013, 13:07 Desiree Galvez PA-C 13:26 04/21/2013 documented in this encounter Plan of Treatment Not on file documented as of this encounter Visit Diagnoses Diagnosis Atypical nevi- Primary Benign neoplasm of skin, site unspecified Spitz nevus of thigh Benign neoplasm of skin of lower limb, including hip Epidermoid cyst Sebaceous cyst Other chronic dermatitis due to solar radiation documented in this encounter Care Teams Silo Erector Relationship Specialty Start Date End Date Dano Euceda MD PCP - General 04/14/12 12/23/21 documented as of this encounter
--- OUTSIDE RECORDS SUMMARY | 2024-05-20 14:42 | XMS_ITS | Encounter Summary ---
Author Organization [facility] Address [address] [place] [address] Care Team Providers Care Pizza Cook Name Role Phone Berta Garcia Primary Care Provider [phone] Encounter Details Date Type Department Care Team (Late st Contact Info) Description 01/20/2024 Lab Requisition [facility] Pathology & Laboratory Medicine - [address] [id number] Outr Resulting Lab, Provider Social History Tobacco [...] Associated Diagnosis Comments PSA TOTAL, DIAGNOSTIC Routine 01/19/2024 7:30 EDT documented in this encounter Results * (ABNORMAL) PSA TOTAL, DIAGNOSTIC (01/19/2024 7:30 EDT) PSA 4.0(H) <=3.5 ng/mL 01/20/2024 19:16 EDT [facility] Blood VENOUS BLOOD / Unknown 01/19/2024 7:30 EDT 01/20/2024 17:46 EDT Narrative [facility] - 01/20/2024 19:16 EDT NOTE: Serum PSA concentration should not be interpreted as absolute evidence for the presence or absence of malignant disease. Assayed on Siemens ADVIA Centaur XPT using chemiluminescent technology.??Values obtained by using different assay methods cannot be used interchangeably. Provider Outr Resulting Lab CHEMISTRY & BLOOD GAS ORDERABLES [facility] [address] [place] [address] documented in this encounter Visit Diagnoses Not on filedocumented in this encounter Care Teams Pizza Cook Relationship Specialty Start Date End Date Berta Garcia [address] [place] [address] PCP - General Internal Medicine - Primary Care 12/24/21 documented as of this encounter
--- OUTSIDE RECORDS SUMMARY | 2024-05-20 14:42 | XMS_ITS | Encounter Summary ---
Author Organization [facility] Address [address] [place] [address] Care Team Providers Care Proof Reader Name Role Phone Berta Garcia Primary Care Provider [phone] Encounter Details Date Type Department Care Team (Late st Contact Info) Description 09/15/2023 Lab Requisition [facility] Pathology & Laboratory Medicine - [address] [address] Ghulam Nicolas MD [address] [place] [address], [address] [place], [place] [id number] Encounter for other general examination Social History Tobacco Use Types Packs/Day Years [...] Procedure Name Priority Date/Time Associated Diagnosis Comments SURGICAL PATHOLOGY Today 09/15/2023 7: 52 EST Encounter for other general examination documented in this encounter Results * SURGICAL PATHOLOGY (09/15/2023 7:52 EST) Note to Patient The following pathology results have been interpreted by your pathologist and may be available to you before your health provider has had the opportunity to review them. Please allow time for your provider to receive these results and explore management options, if applicable. 09/18/2023 9:02 [facility] Final Diagnosis A. COLON, POLYPS X2, 25 CM, BIOPSY: - Polypoid colonic mucosa. - No adenoma identified. - Deeper levels examined. 09/18/2023 9:02 [facility] Attestation By the signature below, the attending physician certifies that they have 1) personally conducted a gross and/or microscopic examination of the described specimen(s), and/or personally interpreted the results of laboratory testing of the described specimen(s), and 2) personally rendered or confirmed the above diagnosis. 09/18/2023 9:02 [facility] at 0902 Clinical History H/O colon polyp 09/18/2023 9:02 [facility] Gross Description A. Received in formalin labelled with proper patient identification (initials L, P) and 1. Colon polyps 25 cm x 2 are 2 stephens-brown tissues (0.3 x 0.2 x 0.1 cm and 0.2 x 0.1 x 0.1 cm). Entirely submitted in A1. Angie Rockwell 09/16/2023 12:03 09/18/2023 9:02 [facility] Performing Lab [facility] 09/18/2023 9:02 [facility] Scanned Images 09/18/2023 9:02 [facility] Tissue COLON STRUCTURE / Unknown 09/15/2023 7:52 EST 09/15/2023 16:33 EST Ghulam Nicolas MD PATHOLOGY ORDERABLES [facility] [address] [place] [address] documented in this encounter Visit Diagnoses Diagnosis Encounter for other general examination documented in this encounter Care Teams Proof Reader Relationship Specialty Start Date End Date Berta Garcia [address] [place] [address] PCP - General Internal Medicine - Primary Care 12/24/21 documented as of this encounter
--- OUTSIDE RECORDS SUMMARY | 2024-05-20 14:42 | XMS_ITS | Encounter Summary ---
Author Organization [facility] Address [address] [place] [address] Care Team Providers Care School Bus Aide Name Role Phone Dano Euceda MD Primary Care Provider Berta Schaefer Primary Care Provider [phone] Reason for Visit * Reason Onset Date Comments Appointment Related 09/12/2016 Encounter Details Date Type Department Care Team (Late st Contact Info) Description 09/12/2016 Telephone [facility] Dermatology 3rd Floor [address] [address] Desiree Galvez PA-C [address] [place] [address], [address] [place] [phone] Appointment Related Social History Tobacco Use Types Packs/Day Years Used Date Smoking Tobacco: Former Cigarettes Smokeless Tobacco: Never Alcohol Use Standard Drinks/Week Comments Not Asked 0 (1 standard drink = 0.6 oz pur e alcohol) Sex and Gender Information Value Date Recorded Sex Assigned at Not on file Gender Identity Not on file Sexual Orientation Not on file documented as of this encounter Miscellaneous Notes * Telephone Encounter - Jacques Liriano - 09/12/2016 1504 EST Notes scanned into external notes in prism. * Telephone Encounter - Claudia Gill - 09/12/2016 1427 EST Please schedule next available FUR with JAZ Christianson. Referring Provider: Dano Euceda MD Reason for Referral: Annual FBSE documented in this encounter Plan of Treatment Not on file documented as of this encounter Visit Diagnoses Not on filedocumented in this encounter Care Teams School Bus Aide Relationship Specialty Start Date End Date Dano Euceda MD PCP - General 04/14/12 12/23/21 Berta Garcia [address] [facility] [place] [address] PCP - General Internal Medicine - Primary Care 12/24/21 documented as of this encounter
--- OUTSIDE RECORDS SUMMARY | 2024-05-20 14:42 | XMS_ITS | Encounter Summary ---
Author Organization [facility] Address [address] [place] [address] Care Team Providers Care Sheet Metal Roofer Name Role Phone Dano Euceda MD Primary Care Provider Berta Schaefer Primary Care Provider [phone] Encounter Details Date Type Department Care Team (Late st Contact Info) Description 08/02/2020 Lab Requisition [facility] Pathology & Laboratory Medicine - [address] [address] Outr Resulting Lab, Provider Social History Tobacco [...] Date/Time Associated Diagnosis Comments PSA TOTAL, DIAGNOSTIC After X-Ray 07/14/2020 9:10 EST documented in this encounter Results * PSA TOTAL, DIAGNOSTIC (07/14/2020 9:10 EST) PSA 2.7 0.0 - 3.5 ng/mL 08/30/2020 10:31 EST [facility] Blood VENOUS BLOOD / Unknown 07/14/2020 9:10 EST 08/29/2020 7:15 EST Narrative [facility] - 08/30/2020 10:31 EST NOTE: Serum PSA concentration should not be interpreted as absolute evidence for the presence or absence of malignant disease. Assayed on Siemens ADVIA Centaur XPT using chemiluminescent technology.??Values obtained by using different assay methods cannot be used interchangeably. Provider Outr Resulting Lab CHEMISTRY & BLOOD GAS ORDERABLES [facility] [address] [place] [address] documented in this encounter Visit Diagnoses Not on filedocumented in this encounter Care Teams Sheet Metal Roofer Relationship Specialty Start Date End Date Dano Euceda MD PCP - General 04/14/12 12/23/21 Berta Garcia [address] [place] [address] PCP - General Internal Medicine - Primary Care 12/24/21 documented as of this encounter
--- OUTSIDE RECORDS SUMMARY | 2024-05-20 14:42 | XMS_ITS | Encounter Summary ---
Author Organization [facility] Address [address] [place] [address] Care Team Providers Care Floor Layer Name Role Phone Unknown, Provider Primary Care Provider [phone] Encounter Details Date Type Department Care Team (Late st Contact Info) Description 07/25/2009 Orders Only [facility] 5th [place] [address] Keely Gar MD [address] [place] [address] Social History Tobacco Use Types Packs/Day Years Used Date Smoking Tobacco: Never Assessed Sex and Gender Information Value Date Recorded Sex Assigned at Not on file Gender Identity Not on file Sexual Orientation Not on file documented as of this encounter Plan of Treatment Not on file documented as of this encounter Procedures Procedure Name Priority Date/Time Associated Diagnosis Comments SURGICAL PATHOLOGY Routine 07/25/2009 0:00 EST documented in this encounter Results * SURGICAL PATHOLOGY (07/25/2009 0:00 EST) Pathology Report: SURGICAL PATHOLOGY REPORT ? Reports generated via electronic interface contain original data; ? however they are lacking the format of the original report. ? Caution should be taken when reading/interpreti ng unformatted reports. ? Name: ? AGUILAR, KELY L ? Accession #: ? [id number] ? : ? 1965 (Age: 43) ??M ? Collect Date: ? 07/25/2009 ? Location: ? [facility] ? Receive Date: ? 07/26/2009 ? Provider: KEELY GAR MD ? Copy to: ? Final Pathologic Diagnosis: ? Skin of arm, left lateral (deltoid), punch biopsy: ? 1. ?Melanocytic nevus, intradermal combined type (common and blue). ??See comment. ? - Nevus extends to peripheral edges of punch biopsy specimen. ? Comment: ? The biopsy consists of an intradermal melanocytic proliferation with ? combined features of common and blue nevus. ??The blue nevus component ? predominates. ??There is no appreciable atypia. ??Features of regression are not ?? evident. ??(Dr. Fairchild)/lgk ? Microscopic Description: ? Sections consist of a punch biopsy of skin that includes subcutis. ??The ? epidermis is mildly hyperplastic and melanin pigment is accentuated at the tips of some of the rete ridges. ??Within the dermis, there is a broad melanocytic ? proliferation that spans the biopsy specimen. ??The superficial component ? consists of ill-defined nests and individual cells. ??The melanocytes are small ?? and polygonal with a moderate amount of light eosinophilic cytoplasm. ??The ? majority of the lesion, however, is composed of dendritic melanocytes with ? spindle-shaped nuclei and long cytoplasmic processes containing melanin pigment. The nuclei are relatively uniform. ??There is no appreciable pleomorphism and ?? mitotic figures are not evident. ??(Dr. Fairchild)/buckyk ? Document reviewed and electronically signed by: ? Elodia Fairchild MD ? Report ??Date: 07/27/2009 16:48 ? By the signature above, the attending physician certifies that he/she has ? personally conducted a gross and/or microscopic examination of the described ? specimens and rendered or confirmed the above diagnosis. ? Specimen(s) Received: ? L lat arm (deltoid) skin, punch ? Clinical History: ? Pantoja-brown changing nevus, blue nevus, eval for regression; clinical ? diagnosis code: 239.2 ? Gross Description: ? Received in formalin labelled Kely Aguilar and left arm is a punch ?? biopsy of stephens skin measuring 0.5 cm in diameter and 0.5 cm in thickness. ??There is a central ill-defined asymmetrical stephens-pantoja macule measuring 0.3 x 0.3 cm. ?? The specimen is bisected and submitted entirely in one cassette. ??(A. ? Pavon)/mms ? End of Report ? [facility] 07/25/2009 07/26/2009 16: 20 EST Keely Gar MD PATHOLOGY ORD ERABLES [facility] [address] [address] documented in this encounter Visit Diagnoses Not on filedocumented in this encounter Care Teams Floor Layer Relationship Specialty Start Date End Date Unknown, Provider, PCP - General 07/06/09 04/13/12 documented as of this encounter
--- OUTSIDE RECORDS SUMMARY | 2024-05-20 14:42 | XMS_ITS | Encounter Summary ---
Author Organization [facility] Address [address] [place] [address] Care Team Providers Care Police Patrol Officer Name Role Phone Dano Euceda MD Primary Care Provider Berta Schaefer Primary Care Provider [phone] Encounter Details Date Type Department Care Team (Late st Contact Info) Description 07/14/2021 Lab Requisition [facility] Pathology & Laboratory Medicine - [address] [address] Outr Resulting Lab, Provider Social History Tobacco [...] Associated Diagnosis Comments PSA TOTAL, DIAGNOSTIC Routine 07/13/2021 8:05 EDT documented in this encounter Results * PSA TOTAL, DIAGNOSTIC (07/13/2021 8:05 EDT) PSA 2.6 0.0 - 3.5 ng/mL 07/16/2021 9:49 EST [facility] Blood VENOUS BLOOD / Unknown 07/13/2021 8:05 EDT 07/15/2021 16:55 EST Narrative [facility] - 07/16/2021 9:49 EST NOTE: Serum PSA concentration should not be interpreted as absolute evidence for the presence or absence of malignant disease. Assayed on Siemens ADVIA Centaur XPT using chemiluminescent technology.??Values obtained by using different assay methods cannot be used interchangeably. Provider Outr Resulting Lab CHEMISTRY & BLOOD GAS ORDERABLES [facility] [address] [place] [address] documented in this encounter Visit Diagnoses Not on filedocumented in this encounter Care Teams Police Patrol Officer Relationship Specialty Start Date End Date Dano Euceda MD PCP - General 04/14/12 12/23/21 Berta Garcia [address] [place] [address] PCP - General Internal Medicine - Primary Care 12/24/21 documented as of this encounter
--- OUTSIDE RECORDS SUMMARY | 2024-05-20 14:42 | XMS_ITS | Encounter Summary ---
Author Organization [facility] Address [address] [place] [address] Care Team Providers Care Associate Professor Of Medicine Name Role Phone Dano Euceda MD Primary Care Provider Unav ailable Reason for Visit * Reason Comments Skin Exam FBSE; atypical nevi Encounter Details Date Type Department Care Team (Late st Contact Info) Description 04/11/2015 9:45 EDT Office Visit [facility] Dermatology 3rd Floor [address] [address] Desiree Galvez, JAZ-C [address] [place] [address], [address] [place] [address] Multiple atypical nevi (Primary Dx); Nevus spilus of thigh, right; Epidermoid cyst; Other chronic dermatitis due to solar radiation; Ecchymosis Social History Tobacco Use Types Packs/Day Years Used Date Smoking Tobacco: Former Cigarettes Smokeless Tobacco: Never Alcohol Use Standard Drinks/Week Comments Not Asked 0 (1 standard drink = 0.6 oz pur e alcohol) Sex and Gender Information Value Date Recorded Sex Assigned at Not on file Gender Identity Not on file Sexual Orientation Not on file documented as of this encounter Discharge Diagnoses Diagnosis 216.9 BENIGN NEOPLASM SKIN NOS[ICD-9-CM] 216.7 BENIGN ELIO SKIN LEG[ICD-9-CM] 706.2 SEBACEOUS CYST[ICD-9-CM] 692.74 CHR SOLAR SKIN DAMAGE NOS[ICD-9-CM] 459.89 CIRCULATORY DISEASE NEC[ICD-9-CM] documented in this encounter Progress Notes * Desiree Galvez PA - 04/11/2015 1009 EDT DERMATOLOGY OUT PATIENT PROGRESS NOTE FOLLOW-UP - ATYPICAL NEVI PROBLEM: 1. Atypical nevi 2. Nevus spilus, right thigh SUBJECTIVE: Gino is a 49 y.o. male who presents today for routine skin check. He has been betterabout sun protection overall. LAST VISIT: 2 years ago PREVIOUS BIOPSIES: Yes - all benign FAMILY HISTORY OF MELANOMA: No CONCERNS TODAY: 1. Check moles - none have changed as far as he knows 2. 2 days ago he was hit in the left eye with an elbow playing basketball; he had no loss of consciousness and has not had any visual changes. He has had bruising with no other symptoms 3. He is very active outdoors and is much better about sun protection overall though he admits to not using sunscreen at all times I reviewed the past medical history, social history, current medications and allergies. Current Outpatient Prescriptions on File Prior to Visit Medication Sig Dispense Refill ??? FLUOXETINE HCL (FLUOXETINE ORAL) Take by mouth. ??? FLUTICASONE/SALMETEROL (ADVAIR DISKUS INHL) Inhale as directed. No current facility-administered medications on file prior to visit. OBJECTIVE: No apparent distress. Healthy apperaing male sitting comfortably. Appropriate affect anddemeanor. SKIN EXAM: Apple Skin Type III - full body examination including the hair, scalp, face, eyelids, lips, neck, chest, back, abdomen, all four extremities, hands, feet, digits and nails. There is moderate diffuse actinic changes over the sun exposed areas of the face, chest, upper back, shoulders forearms, dorsal hands and legs. OTHER LESIONS NOTED: 1. Left upper eyelid - diffusely purplish pink with no conjunctival injection 2. He has many phenotypically different macules and papules over the torso and extremities, all of which have similar lesions. When viewed globally, there are none that stick out. A few macules have darker pigment in the centers which is uniform and reticulate when viewed with magnification. There are many daily mammillated papules and small plaques scattered over the torso and neck 3. Right anterior thigh - 3.0 x 2.5 cm stephens patch within which are multiple 1 mm dark brown monomorphic macules 4. Left mid upper back - 4 mm small cyst with visible central punctum ASSESSMENT: 1. Multiple atypical nevi 2. Nevus spilus of thigh, right 3. Epidermoid cyst 4. Other chronic dermatitis due to solar radiation 5. Ecchymosis - left eyelid PLAN: 1. Biopsy today: No 2. Reviewed signs and symptoms of melanoma and non-melanoma skin cancers to be aware of. 3. Self-surveillance - reviewed ugly duckling sign. 4. The importance of sunscreen use (SPF >30), sun avoidance and self-examination was discussed. Reapplication of sunscreen every 2-3 hours as recommended. 5. Follow up: Every couple of years or sooner with any questions or concerns. Please note: Parts of this documentation were created with the use of voice recognition software and may contain correctional supervising cook errors JAZ Fontenot 10:09 04/11/2015 * Randi Jacobs - 04/11/2015 0959 EDT Review of Systems Constitutional: Negative for [...] disturbance. The patient is not nervous/anxious. Randi Jacobs 04/11/2015 9:59 Desiree Galvez PA-C 10:29 04/11/2015 documented in this encounter Plan of Treatment Not on file documented as of this encounter Visit Diagnoses Diagnosis Multiple atypical nevi- Primary Nevus spilus of thigh, right Epidermoid cyst Sebaceous cyst Other chronic dermatitis due to solar radiation Ecchymosis Other specified circulatory system disorders documented in this encounter Care Teams Associate Professor Of Medicine Relationship Specialty Start Date End Date Dano Euceda MD PCP - General 04/14/12 12/23/21 documented as of this encounter
--- OUTSIDE RECORDS SUMMARY | 2024-05-20 14:42 | XMS_ITS | Encounter Summary ---
Author Organization [facility] Address [address] [place] [address] Care Team Providers Care Strategic Planning Manager Name Role Phone Unknown, Provider Primary Care Provider Encounter Details Date Type Department Care Team (Latest Contact Info) Description 07/25/2009 10:49 EST - 07/25/2009 10:50 EST Hospital Encounter [facility] - Other [address] [place] [address] Thania Gar MD [address] [place] [address] Discharge Disposition: Home or Self Care Social History Tobacco Use Types Packs/Day Years Used Date Smoking Tobacco: Never Assessed Sex and Gender Information Value Date Recorded Sex Assigned at Not on file Gender Identity Not on file Sexual Orientation Not on file documented as of this encounter Discharge Disposition Disposition Code Departure Means Destination Home or Self Care documented in this encounter Plan of Treatment Not on file documented as of this encounter Visit Diagnoses Not on filedocumented in this encounter Care Teams Strategic Planning Manager Relationship Specialty Start Date End Date Unknown, ProviderMD PCP - General 07/06/09 04/13/12 documented as of this encounter
--- OUTSIDE RECORDS SUMMARY | 2024-05-20 14:42 | XMS_ITS | Encounter Summary ---
Author Organization [facility] Address [address] [place] [address] Care Team Providers Care Inventory Audit Clerk Name Role Phone Berta Garcia Primary Care Provider [phone] Reason for Visit * Reason Comments Follow-up Bump on L cheek x2 m onths Encounter Details Date Type Department Care Team (Late st Contact Info) Description 08/28/2022 9:30 EST Office Visit [facility] Dermatology 3rd Floor [address] [address] Desiree Galvez PA-C [address] [place] [address], [address] [place] [phone] Epidermoid cyst of skin of cheek (Primary Dx) Social History Tobacco Use Types Packs/Day Years [...] Progress Notes * Desiree Galvez PA-C - 08/28/2022 0930 EST DERMATOLOGY OUT PATIENT PROGRESS NOTE - FOLLOW UP PROBLEM: Chief Complaint Patient presents with ??? Follow-up Lump on L cheek x 2months SUBJECTIVE: Gino is a 57 y.o. male who presents today for the above stated concern. HPI: He thinks this started with an acne-like lesion a couple of months ago and is now turned into a hard firm bump. He has been very good about not manipulating this. This is not tender but seems toslowly be getting larger. DERMATOLOGIC HISTORY: 1. Atypical nevi 2. Spilus I reviewed the past medical history, social history, allergies and current medications (see below) Current Outpatient Medications on File Prior to Visit Medication Sig Dispense Refill ??? FLUTICASONE/SALMETEROL (ADVAIR DISKUS INHL) Inhale as directed. No current facility-administered medications on file prior to visit. Allergies Allergen Reactions ??? Cat Dander OBJECTIVE: No apparent distress. Healthy appearing male sitting comfortably. Appropriate affect anddemeanor. SKIN EXAM: Apple Skin Type II. head and neck examination including the hair, scalp, face, eyelids, lips and neck Findings: 1. Left malar eminence -4 mm firm white round papule -easily expressed ASSESSMENT: 1. Epidermoid cyst of skin of cheek PLAN: 1. The skin was cleaned with an alcohol wipe and the small cyst was easily expressed with pressure.He can wash his face normally, no restrictions on activity and keep it covered just for the rest oftoday. Please note: Parts of this documentation were created with the use of voice recognition software and may contain golf club manager errors Desiree Galvez PA-C 9:38 08/28/2022 documented in this encounter Plan of Treatment Not on file documented as of this encounter Visit Diagnoses Diagnosis Epidermoid cyst of skin of cheek- Primary documented in this encounter Discontinued Medications Medication Sig Discontinue Reason Start Date End Da te FLUOXETINE HCL (FLUOXETINE ORAL) Take by mouth. Discontinued by another clinician 08/28/2022 documented as of this encounter Care Teams Inventory Audit Clerk Relationship Specialty Start Date End Date Berta Garcia [address] [place] [address] PCP - General Internal Medicine - Primary Care 12/24/21 documented as of this encounter
--- OUTSIDE RECORDS SUMMARY | 2024-05-20 14:42 | XMS_ITS | Encounter Summary ---
Author Organization [facility] Address [address] [place] [address] Care Team Providers Care City Planning Aide Name Role Phone Unknown, Provider Primary Care Provider [phone] Dano Euceda MD Primary Care Provider UnaBerta Pinto Primary Care Provider [phone] Encounter Details Date Type Department Care Team (Late st Contact Info) Description 09/10/2011 Documentation Visit [facility] Dermatology 5th Floor [facility] [address] [place], [place] [address] Thania Gar MD [address] [place] [phone] Social History Tobacco Use Types Packs/Day Years Used Date Smoking Tobacco: Never Assessed Sex and Gender Information Value Date Recorded Sex Assigned at Not on file Gender Identity Not on file Sexual Orientation Not on file documented as of this encounter Progress Notes * Thania Gar MD - 09/11/2011 1417 EST DIVISION OF DERMATOLOGY - [facility] PROGRESS/FOLLOWUP NOTE - 09/10/2011 CHIEF COMPLAINT: Follow up atypical nevi. SUBJECTIVE: Interval followup for this 46-year-old man who was seen in close to two years ago. He has been followed with multiple atypical nevi and a strong family history of skin cancers. He has been did not keep a regular followup, but is here today for interval followup. He is not awareof any new or changing lesions. He has tried to be good about sun protection. His interval health has been good. His mother did from breast cancer in the interim, but he says it was overall a good experience and he is doing well from that. MEDICATIONS: Advair, Prilosec, and fluoxetine. ALLERGIES: None known. OBJECTIVE: Well-appearing pleasant man. Awake, alert and fully oriented. Scalp, face, neck, chest, back, abdomen, buttocks, upper and lower extremities were examined. There are scattered pigmented papules and macules on the trunk and extremities, most of which are entirely benign in appearance. There are several, particularly on the lower back, which are small and more darkly pigmented than the others. None, however, are significantly atypical. No lesions are concerning for malignancy. ASSESSMENT: Atypical nevi, none concerning for malignancy today. PLAN: 1. Will continue to follow him on a regular basis. Recommend he follow up in 6 to 12 months. Shouldperform intermittent self skin exam in the meantime, looking for any new or changing lesions. 2. In particular, watch for any ugly ducklings. Should be very aggressive about sun protection atall times. Call with any questions or concerns. Otherwise, follow up as above. Electronically Signed by Thania Gar MD 09/17/2011 13:45 Thania Gar MD - Thania Gar MD - KEATON Job ID: SM Doc ID: [id number] Ext Doc ID: [id number] cc: Dano Euceda MD [facility] documented in this encounter Plan of Treatment Not on file documented as of this encounter Visit Diagnoses Not on filedocumented in this encounter Care Teams City Planning Aide Relationship Specialty Start Date End Date Unknown, Provider, PCP - General 07/06/09 04/13/12 Dano Euceda MD PCP - General 04/14/12 12/23/21 Berta Garcia [address] [facility] [place] [address] PCP - General Internal Medicine - Primary Care 12/24/21 documented as of this encounter
--- OUTSIDE RECORDS SUMMARY | 2024-05-20 14:42 | XMS_ITS | Clinical Summary ---
Author Organization [facility] Address [address] [place] [id number] Care Team Providers Care Filer Finish Name Role Phone Berta Garcia Primary Care Provider [phone] Allergies Active Allergy Reactions Criticality Noted Date Comments Cat Dander 08/28/2022 Medications Medication Sig Dispensed Refills Start Date End Date Status FLUTICASONE/SALMETEROL (ADVAIR DISKUS INHL) Inhale as directed. 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 Encounters Date Type Department Care Team Description 04/29/2024 8:10 EDT Office Visit [facility] Dermatology 3rd [place] [address] Desiree Galvez, ATUL Multiple atypical nevi (Primary Dx); Nevus spilus of right thigh from Last 3 Months Social History Tobacco [...] on file Sexual Orientation Not on file Obstetrics History Plan of Treatment Health Maintenance Due Date Last Done Comments Hepatitis C Screen 1965 Hepatitis B Vaccine (1 of 3 - 19+ 3-dose series) 08/08 COVID-19 Vaccine ( season) 2024 Care Teams Filer Finish Relationship Specialty Start Date End Date Berta Garcia [address] [place] [address] PCP - General Internal Medicine - Primary Care 12/24/21
--- OUTSIDE RECORDS SUMMARY | 2024-05-20 14:42 | XMS_ITS | Encounter Summary ---
Author Organization [facility] Address [address] [place] [address] Care Team Providers Care Chassis Wirer Name Role Phone Berta Garcia Primary Care Provider [phone] Reason for Visit * Reason Comments Follow-up Skin lesions. Spot c heck L posterior shoulder Encounter Details Date Type Department Care Team (Late st Contact Info) Description 12/24/2021 10:10 EDT Office Visit [facility] Dermatology 3rd Floor [address] [address] Desiree Galvez PA-C [address] [place] [address], [address] [place] [phone] Multiple atypical nevi (Primary Dx); Nevus spilus of right thigh; Notalgia paresthetica; Actinic skin damage Social History Tobacco Use [...] Progress Notes * Desiree Galvez PA-C - 12/24/2021 1010 EDT DERMATOLOGY OUT PATIENT PROGRESS NOTE Chief Complaint Patient presents with ??? Follow-up Skin lesions. Spot check L posterior shoulder FOLLOW-UP - ATYPICAL NEVI PROBLEM: Atypical nevi SUBJECTIVE: Gino is a 56 y.o. male who presents today for routine skin check. He has been betterabout sun protection overall. LAST VISIT: 10/20/2019 PREVIOUS BIOPSIES: Yes -all benign FAMILY HISTORY OF MELANOMA: No CONCERNS TODAY: 1. Itching on the back of the left shoulder, just along the edge of the shoulder blade. This is a deep intense itch, always in the same spot. He is unable to reach this to scratch. 2. No change in any of his nevi that he is aware of I reviewed the past medical history, social history, current medications and allergies. Current Outpatient Medications on File Prior to Visit Medication Sig Dispense Refill ??? FLUOXETINE HCL (FLUOXETINE ORAL) Take by mouth. ??? FLUTICASONE/SALMETEROL (ADVAIR DISKUS INHL) Inhale as directed. No current facility-administered medications on file prior to visit. No Known Allergies OBJECTIVE: No apparent distress. Healthy apperaing male [...] back, shoulders forearms, dorsal hands and legs. The most prominent changes are on the posterior neck. OTHER LESIONS NOTED: 1. Scattered over the torso and extremities are multiple phenotypically different macules and papules. There are no outliers that have no similar lesions. When viewed globally, these are mostly medium to dark brown, many doughy papules and many medium to dark brown macules. There are a few that have denser, darker brown pigment in the centers. 2. Right anterior thigh -3.0 x 2.5 cm stephens patch within which there are multiple 1 mm dark brown macules, all clinically similar. 3. In the area of his itch, there is no lichenification or hyperpigmentation ASSESSMENT: 1. Multiple atypical nevi 2. Nevus spilus of right thigh 3. Notalgia paresthetica PLAN: 1. Biopsy today: No 2. Reviewed signs and symptoms of melanoma and non-melanoma skin cancers to be aware of. 3. Self-surveillance - reviewed ugly duckling sign. 4. The importance of sunscreen use (SPF >30), sun avoidance and self-examination was discussed. Reapplication of sunscreen every 2-3 hours as recommended. 5. Education on notalgia paresthetica and handout given. We talked briefly about capsaicin which needs to be applied 4 times a day which he does not think he would be willing to do. We also briefly talked about physical therapy to work on spinal erector strengthening as well as strengthening of thelower trapezius muscles. 6. Follow up: every couple of years or sooner with any questions or concerns. Please note: Parts of this documentation were created with the use of voice recognition software and may contain christian counselor errors Desiree Galvez PA-C 10:12 12/24/2021 documented in this encounter Plan of Treatment Not on file documented as of this encounter Visit Diagnoses Diagnosis Multiple atypical nevi- Primary Nevus spilus of right thigh Notalgia paresthetica Disturbance of skin sensation Actinic skin damage Other dermatitis due to solar radiation documented in this encounter Care Teams Chassis Wirer Relationship Specialty Start Date End Date Berta Garcia [address] [place] [address] PCP - General Internal Medicine - Primary Care 12/24/21 documented as of this encounter
--- OUTSIDE RECORDS SUMMARY | 2024-05-20 14:42 | XMS_ITS | Encounter Summary ---
Author Organization [facility] Address [address] [place] [address] Care Team Providers Care Bid Analyst Name Role Phone Dano Euceda MD Primary Care Provider Unav ailable Reason for Visit * Reason Comments Follow-up Mole check Encounter Details Date Type Department Care Team (Late st Contact Info) Description 10/20/2019 10:00 EST Office Visit [facility] Dermatology 3rd Floor [address] [id number] Desiree Galvez, ATUL [address] [place] [address], [address] [place] [address] Nevus spilus of right thigh (Primary Dx); Multiple atypical nevi; Multiple benign nevi; Epidermoid cyst; Actinic skin damage Social History [...] as of this encounter Progress Notes * Saleem Long MA - 10/20/2019 1000 EST Review of Systems Constitutional: Negative for [...] sleep disturbance. The patient is not nervous/anxious. SALEEM LONG MA 10/20/2019 9:36 Desiree Galvez PA-C 9:48 10/20/2019 * Desiree Galvez PA-C - 10/20/2019 1000 EST DERMATOLOGY OUT PATIENT PROGRESS NOTE Chief Complaint Patient presents with ??? Follow-up Mole check FOLLOW-UP - ATYPICAL NEVI PROBLEM: Atypical nevi SUBJECTIVE: Gino is a 54 y.o. male who presents today for routine skin check. He has been betterabout sun protection overall. LAST VISIT: 11/06/16 PREVIOUS BIOPSIES: Yes - all benign FAMILY HISTORY OF MELANOMA: No CONCERNS TODAY: 1. Check moles - none have changed a far as he knows 2. He has not had any problems with the small cyst on his mid upper back I reviewed the past medical history, [...] areas of the face, chest, upper back, posterior neck, shoulders forearms and much less on the legs . OTHER LESIONS NOTED: 1. Mid upper back- 6 mm small rubbery cyst with visible central punctum 2. He has many phenotypically different macules and papules over the torso and extremities. There are no outliers that have no similar lesions. When viewed globally, these are mostly medium to dark brown, many doughy papules and many medium to dark brown macules. A few have darker pigment in the centers. 3. Right anterior thigh-3.0 x 2.5 cm stephens patch within which are multiple 1 to 2 mm dark brown, monomorphic macules ASSESSMENT: 1. Nevus spilus of right thigh 2. Multiple atypical nevi 3. Multiple benign nevi 4. Epidermoid cyst 5. Actinic skin damage PLAN: 1. Biopsy today: No 2. Reviewed signs and symptoms of melanoma and non-melanoma skin cancers to be aware of. 3. Self-surveillance - reviewed ugly duckling sign. 4. The importance of sunscreen use (SPF >30), sun avoidance and self-examination was discussed. Reapplication of sunscreen every 2-3 hours as recommended. 5. Follow up: every 2-3 years or sooner with any questions or concerns. Please note: Parts of this documentation were created with the use of voice recognition software and may contain hydroelectric plant operator errors Desiree Galvez PA-C 9:48 10/20/2019 documented in this encounter Plan of Treatment Not on file documented as of this encounter Visit Diagnoses Diagnosis Nevus spilus of right thigh- Primary Multiple atypical nevi Multiple benign nevi Benign neoplasm of skin, site unspecified Epidermoid cyst Sebaceous cyst Actinic skin damage Other dermatitis due to solar radiation documented in this encounter Care Teams Bid Analyst Relationship Specialty Start Date End Date Dano Euceda MD PCP - General 04/14/12 12/23/21 documented as of this encounter
--- OUTSIDE RECORDS SUMMARY | 2024-05-20 14:42 | XMS_ITS | Encounter Summary ---
Author Organization [facility] Address [address] [place] [id number] Care Team Providers Care Clinical Laboratory Technician Name Role Phone Berta Garcia Primary Care Provider [phone] Encounter Details Date Type Department Care Team (Late st Contact Info) Description 01/17/2023 Lab Requisition [facility] Pathology & Laboratory Medicine - [address] [phone] Outr Resulting Lab, Provider Social History Tobacco [...] Associated Diagnosis Comments PSA TOTAL, DIAGNOSTIC Routine 01/17/2023 9:20 EDT documented in this encounter Results * (ABNORMAL) PSA TOTAL, DIAGNOSTIC (01/17/2023 9:20 EDT) PSA 3.9(H) <=3.5 ng/mL 01/17/2023 23:10 EDT [facility] Blood VENOUS BLOOD / Unknown 01/17/2023 9:20 EDT 01/17/2023 22:16 EDT Narrative [facility] - 01/17/2023 23:10 EDT NOTE: Serum PSA concentration should not be interpreted as absolute evidence for the presence or absence of malignant disease. Assayed on Siemens ADVIA Centaur XPT using chemiluminescent technology.??Values obtained by using different assay methods cannot be used interchangeably. Provider Outr Resulting Lab CHEMISTRY & BLOOD GAS ORDERABLES [facility] [address] [place] [address] documented in this encounter Visit Diagnoses Not on filedocumented in this encounter Care Teams Clinical Laboratory Technician Relationship Specialty Start Date End Date Berta Garcia [address] [place] [address] PCP - General Internal Medicine - Primary Care 12/24/21 documented as of this encounter
--- OUTSIDE RECORDS SUMMARY | 2024-05-20 14:42 | XMS_ITS | Encounter Summary ---
Author Organization [facility] Address [address] [place] [address] Care Team Providers Care Chef Teacher Name Role Phone Unknown, Provider Primary Care Provider [phone] Encounter Details Date Type Department Care Team (Late st Contact Info) Description 11/22/2008 Before PRISM Converted Visit (Maple) [facility] - Maple conversion [address] [place] [address] Thania Gar MD [address] [place] [address] Social History Tobacco Use Types Packs/Day Years Used Date Smoking Tobacco: Never Assessed Sex and Gender Information Value Date Recorded Sex Assigned at Not on file Gender Identity Not on file Sexual Orientation Not on file documented as of this encounter Plan of Treatment Not on file documented as of this encounter Visit Diagnoses * Evaluation - Thania Gar MD - 10/11/2009 1222 EST DIVISION OF DERMATOLOGY - [facility] NEW PATIENT EVALUATION - 11/22/2008 CHIEF COMPLAINT Atypical nevi. Mr. George is a 43-year-old man here for re-evaluation of multiple nevi. He says he has had multiple nevi for many years; He says he has a father who also has numerous nevi. He has been seen by otherphysicians in the past and recently saw his PCP, Dr. Euceda, who suggested that he be evaluated. He is not aware of any which are unusual and has not noticed any that are new or changing. None are sy mptomatic, but he acknowledges that they are hard to watch, as he has so many of them. To date, he has never had any nevi removed, and he is not aware of any family history of melanoma. He does have a strong history of cancer in multiple family members, including his mother, who has breast cancer, his father who had prostate cancer, and several maternal aunts and uncles, who had either breast or prostate cancer. 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 He attempts to protect himself from excessive sun exposure but has had lerner. He is otherwise quite healthy, except for environmental allergies, and he is being treated for depression. PRESENT MEDICATIONS Advair, fluoxetine, and Prilosec. ALLERGIES None known. Please see dermatology intake sheet in chart for a complete review of systems, surgical, social, and the remainder of family history. OBJECTIVE Well appearing pleasant man who was awake, alert, and fully cooperative. Complete skin exam was performed, including scalp, face, neck, chest, back, abdomen, and buttocks, upper and lower extremities. Genitals were also examined. There are multiple pigmented papules and macules, predominantly on the torso but also on the extremities. Most are relatively homogeneous, measure 2 to 3 mm, and have even pigmentation. Some are slightly larger, but these also are fairly similar to others on the torso.Somehave mild pigment variegation and/or minimal border irregularity; none, however, are concerningtoday for malignancy. ASSESSMENT Multiple atypical nevi in patient with a strong family history of other cancers. No family history of melanoma. PLAN We discussed the nature of atypical nevi, and I stressed that it is important for him to have ongoing skin checks given his multiple nevi. We stressed also the importance of interval self-skin exam, watching for ugly ducklings, and avoiding sun exposure. Strategies for the sun protection explained. We will have him return in six months to establish a better baseline and would recommend regular follow up after. He will call with any concerning changes or worrisome lesions in the interim. Signed by Thania Gar MD 12/02/2008 14:13 Thania Gar MD - MD Cong - PAT Job ID: [id number] Doc ID: [id number] cc: Dano Euceda MD [facility] - Thania Gar MD - pat Job ID: [id number] Doc ID: [id number] cc: Dano Euceda MD [facility] documented in this encounter Care Teams Chef Teacher Relationship Specialty Start Date End Date Unknown, Provider, PCP - General 07/06/09 04/13/12 documented as of this encounter
--- OUTSIDE RECORDS SUMMARY | 2024-05-20 14:42 | XMS_ITS | Encounter Summary ---
Author Organization [facility] Address [address] [place] [address] Care Team Providers Care Saddle Mechanic Name Role Phone Dano Euceda MD Primary Care Provider Unav ailable Reason for Visit * Reason Comments Follow-up Skin check-patient c oncerned about moles Encounter Details Date Type Department Care Team (Late st Contact Info) Description 04/14/2012 14:30 EDT Office Visit [facility] Dermatology 3rd Floor [place] [phone] Keely Gar MD [address] [place] [phone] Atypical nevi (Primary Dx) Social History Tobacco Use Types Packs/Day Years Used Date Smoking Tobacco: Former Cigarettes Alcohol Use Standard Drinks/Week Comments Not Asked 0 (1 standard drink = 0.6 oz pur e alcohol) Sex and Gender Information Value Date Recorded Sex Assigned at Not on file Gender Identity Not on file Sexual Orientation Not on file documented as of this encounter Progress Notes * Keely Gar MD - 04/18/20126 EDT Dermatology Clinic Outpatient Note 04/14/12 CHIEF COMPLAINT: Follow up atypical nevi SUBJECTIVE: Interval followup for this 46-year-old man who was seen in [place] in September. He has been followed with multiple atypical nevi and a strong family history of skin cancers. He is not aware of any new or changing moles. Has tried to be good about sun protection His interval health has been good. MEDICATIONS: Advair, fluoxetine. ALLERGIES: None known. OBJECTIVE: Well-appearing pleasant [...] nevi, none concerning for malignancy today. PLAN: reassured. Continue aggressive sun protection, wearing clothing, a wide- brimmed hat and high SPF sunscreen on areas that can't be covered. Regular skin surveillance with intermittent self skin exams recommended, watching for any new or changing skin lesions or ugly ducklings. Recheck 6-12 mos. KEELY GAR MD 04/18/2012 21:29 * Leslie Sarabia - 04/14/2012 1403 EDT A complete 12 point review of systems was obtained and reviewed. All systems are negative Leslie Sarabia 04/14/2012 14:03 Reviewed at visit. KEELY GAR MD documented in this encounter Plan of Treatment Not on file documented as of this encounter Visit Diagnoses Diagnosis Atypical nevi- Primary Benign neoplasm of skin, site unspecified documented in this encounter Historical Medications * This list may reflect changes made after this encounter. Medication Sig Dispensed Refills Start Date End Date FLUTICASONE/SALMETEROL (ADVAIR DISKUS INHL) Inhale as directed. FLUOXETINE HCL (FLUOXETINE ORAL) Take by mouth. 08/28/20 22 added in this encounter Care Teams Saddle Mechanic Relationship Specialty Start Date End Date Dano Euceda MD PCP - General 04/14/12 12/23/21 documented as of this encounter
[2024-05-24 17:09] LABS: PSA, Ultrasensitive 4.7 ng/mL (<= 3.5)
== END 2024-05-20 14:39 | disposition home or self-care (01) ==
LOC: LBN 14:38
PROVIDERS: PCP Internal Medicine; Visit Provider Student in an Organized Health Care Education/Training Program
DX: R97.20 Elevated prostate specific antigen [PSA] (principal)
CPT/HCPCS: 84153

== ENCOUNTER 2024-12-28 11:42 | Outpatient (REF) | payer OTHER, SELFPAY ==
[2024-12-31 10:36] LABS: PSA, Ultrasensitive 4.4 ng/mL (<= 3.5)
[2024-12-31 16:18] LABS: Free PSA/PSA Ratio 0.11 ratio
== END 2024-12-28 11:43 | disposition home or self-care (01) ==
LOC: LBN 11:42
PROVIDERS: PCP Student in an Organized Health Care Education/Training Program; Visit Provider Student in an Organized Health Care Education/Training Program
DX: Z80.42 Family history of malignant neoplasm of prostate (principal)
CPT/HCPCS: 84153; 84154

== ENCOUNTER 2025-01-19 07:33 | Outpatient (REF) | payer OTHER, SELFPAY ==
[2025-01-19 17:04] LABS: ALT 34 U/L (16-63); AST 22 U/L (15-37); Albumin 4.1 g/dL (3.4-5.0); Alkaline Phosphatase 85 U/L (46-116); Anion Gap 6.8 mmol/L (3-11); BUN 18 mg/dL (7-18); Bilirubin, Total 0.6 mg/dL (0.2-1.0); CO2 30.2 mmol/L (21.0-32.0); CREATININE 0.9 mg/dL (0.70-1.30); Calcium 9.7 mg/dL (8.5-10.1); Calculated LDL 138 mg/dL (<100); Chloride 102 mmol/L (98-107); Cholesterol 231 mg/dL (<200); Glucose 97 mg/dL (74-106); HDL Cholesterol 83 mg/dL (>or=40); Potassium 4.7 mmol/L (3.5-5.1); Sodium 139 mmol/L (136-145); Total Protein 7.3 g/dL (6.4-8.2); Triglyceride 50 mg/dL (<150)
== END 2025-01-19 07:34 | disposition home or self-care (01) ==
LOC: NCHCN 07:33
PROVIDERS: PCP Student in an Organized Health Care Education/Training Program; Visit Provider Internal Medicine
DX: E78.5 Hyperlipidemia, unspecified (principal)
CPT/HCPCS: 80053; 80061

== ENCOUNTER 2025-03-29 17:22 | Outpatient (REF) | payer OTHER, SELFPAY | END 2025-03-29 17:23 | disposition home or self-care (01) | LOC: LBN 17:22 | PROVIDERS: PCP Student in an Organized Health Care Education/Training Program; Visit Provider Student in an Organized Health Care Education/Training Program | DX: R97.20 Elevated prostate specific antigen [PSA] (principal) | CPT/HCPCS: 84153 ==

== ENCOUNTER 2025-07-04 21:25 | Outpatient (REF) | payer OTHER, SELFPAY | END 2025-07-04 21:26 | disposition home or self-care (01) | LOC: LBN 21:25 | PROVIDERS: PCP Student in an Organized Health Care Education/Training Program; Visit Provider Student in an Organized Health Care Education/Training Program | DX: R97.20 Elevated prostate specific antigen [PSA] (principal) | CPT/HCPCS: 84153 ==